=== PATIENT | male | born 1970 | race Two or more races ===

== ENCOUNTER 2020-01-28 04:37 | Day surgery (SDC) | payer OTHER ==
[2020-01-25 09:09] VITALS: BMI 28.7
[2020-01-28 13:08] VITALS: PULSE 66
[2020-01-28] MEDS ORDERED: MIDAZOLAM HCL 2 MG/2 ML SINGLE DOSE VIAL ONE ×2 (15:14)
[2020-01-28 16:03] VITALS: BP 128/88; TEMP 97.5
--- NOTE | 2020-01-28 16:04 | OP ---
Operative Note - Note: Operative Date: 01/28/20 Pre-Operative Diagnosis: Left renal stone Operation: Left ESWL Findings: 6 mm mid pole Left renal stone Post-Operative Diagnosis: Same as Pre-op Surgeon: Cristiano Alcantara Anesthesia: Regional Estimated Blood Loss (mls): 0 Operative Report Dictated: Yes
[2020-01-28] MEDS ORDERED: TAMSULOSIN HCL 0.4 MG CAP PO ONE ×2 (16:30→16:31)
[2020-01-28] MEDS ORDERED: ACETAMINOPHEN 325 MG TABLET (FP) PO ONE ×2 (16:30→17:15)
[2020-01-28] MEDS ORDERED: ACETAMINOPHEN 500 MG TABLET (FP) PO ONE (16:33)
[2020-01-28] MEDS ORDERED: ACETAMINOPHEN 325 MG TABLET (FP) ONE (16:38)
[2020-01-28] MEDS ORDERED: oxyCODONE HCL 5 MG TABLET PO ONE (17:15)
--- NOTE | 2020-01-28 19:23 | OP ---
DATE OF OPERATION: 01/28/2020 PREOPERATIVE DIAGNOSIS: Left renal stone . POSTOPERATIVE DIAGNOSIS: Left renal stone. PROCEDURE: Left extracorporeal shockwave lithotripsy. ATTENDING: Maryanne Alcantara M.D. ANESTHESIA: Fractional. DESCRIPTION OF PROCEDURE: Patient was brought in the operating room, placed in a supine position on the operating room table. Ultrasonography and fluoroscopy were performed. A 6-mm left mid pole stone was identified. Anesthesia and preoperative antibiotics were then administered. Shockwave lithotripsy was then started. 2500 impulses at 17 joules of power were administered to the stone under realtime ultrasonography and fluoroscopy. The stone fragmented well under realtime ultrasonography and fluoroscopy. No complications were noted. The patient tolerated the procedure very well. MARYANNE KLEIN M.D. [id number]
== END 2020-01-28 18:00 | disposition home or self-care (01) ==
LOC: JASU-SURG 04:37
PROVIDERS: ATTEND Urology
PROC: 0TF4XZZ Fragmentation in Left Kidney Pelvis, External Approach (ICD-10-PCS; principal; 2020-01-28 14:30)
DX: N20.0 Calculus of kidney (principal)

== ENCOUNTER 2020-06-16 04:25 | Day surgery (SDC) | payer OTHER ==
[2020-06-12 14:08] VITALS: BMI 28.4
[2020-06-16] MEDS ORDERED: KETOROLAC TROMETHAMINE 30 MG/1 ML VIAL ONE (09:56)
[2020-06-16] MEDS ORDERED: PROPOFOL 20 ML ONE (09:57)
[2020-06-16 10:56] VITALS: PULSE 57
[2020-06-16 12:13] VITALS: BP 120/78; TEMP 97.5
== END 2020-06-16 12:00 | disposition home or self-care (01) ==
LOC: JASU-SURG 04:25
PROVIDERS: ATTEND Urology
PROC: 0TF3XZZ Fragmentation in Right Kidney Pelvis, External Approach (ICD-10-PCS; principal; 2020-06-16 09:30)
DX: N20.0 Calculus of kidney (principal)

== ENCOUNTER 2021-08-20 15:03 | Emergency (ER) | payer OTHER ==
[2021-08-20 15:29] VITALS: BP 138/91; PULSE 74; TEMP 98; BMI 29.0
[2021-08-20] MEDS ORDERED: SODIUM CHLORIDE 0.9% 500 ML INFUS.BAG IV ONE (15:55)
[2021-08-20 16:48] LABS: BASO % 0.7 % (0-2.0); EOS % 2.4 % (0-4.5); HEMOGLOBIN 14.7 GM/dL (11.7-16.9); LYMPH % 32.2 % (8-40); MCHC 32.6 g/dl (32.0-35.9); MEAN CELL VOLUME 88.9 fl (80-96); MEAN PLT VOLUME 9.1 fl (7.5-11.1); MONO % 14.2 % (3.8-10.2); NEUT % 50.5 % (42.8-82.8); PLATELET COUNT 160 10^3/uL (134-434); RBC 5.06 M/mm3 (4.00-5.60); RDW 13.5 % (11.9-15.9); WHITE BLOOD COUNT 6.1 K/mm3 (4.0-10.0)
[2021-08-20 16:49] LABS: URINE APPEARANCE CLEAR; URINE BILIRUBIN NEGATIVE (NEGATIVE); URINE COLOR YELLOW; URINE GLUCOSE (UA) NEGATIVE (NEGATIVE); URINE KETONE NEGATIVE (NEGATIVE); URINE LEUK ESTERASE NEGATIVE (NEGATIVE); URINE NITRITE NEGATIVE (NEGATIVE); URINE PROTEIN NEGATIVE (NEGATIVE); URINE UROBILINOGEN 0.2 mg/dL (0.2-1.0)
[2021-08-20 16:55] LABS: INR 1.04 (0.83-1.09)
[2021-08-20 16:58] LABS: ACTIVATED PTT 31.7 SECONDS (25.2-36.5)
[2021-08-20 17:17] LABS: ALBUMIN 4.1 g/dl (3.4-5.0); CALCIUM 8.9 mg/dL (8.5-10.1)
[2021-08-20 17:18] LABS: BLOOD UREA NITROGEN 15.7 mg/dL (7-18)
[2021-08-20 17:20] LABS: CREATININE 0.8 mg/dL (0.55-1.3)
[2021-08-20 17:22] LABS: BILIRUBIN,TOTAL 0.5 mg/dL (0.2-1); TOT PROT 7.3 g/dl (6.4-8.2)
== END 2021-08-20 21:03 | disposition home or self-care (01) ==
LOC: JERFT 15:03
DX: R10.9 Unspecified abdominal pain (principal)
CPT/HCPCS: 36415; 74177-TC; 80053; 81003; 85025; 85610; 85730; 87086; 99285-25; Q9967

== ENCOUNTER 2022-12-27 04:29 | Day surgery (SDC) | payer OTHER ==
[2022-12-23 11:28] VITALS: BMI 29.3
[2022-12-27 11:02] VITALS: RESP 20
[2022-12-27] MEDS ORDERED: MIDAZOLAM HCL 2 MG/2 ML SINGLE DOSE VIAL ONE (12:58)
[2022-12-27] MEDS ORDERED: ONDANSETRON 4 MG/2 ML VIAL ONE (13:31)
[2022-12-27 16:36] VITALS: BP 123/78; PULSE 60; TEMP 97.3
== END 2022-12-27 16:00 | disposition home or self-care (01) ==
LOC: JASU-SURG 04:29
PROVIDERS: ATTEND Urology
PROC: 0TF4XZZ Fragmentation in Left Kidney Pelvis, External Approach (ICD-10-PCS; principal; 2022-12-27 12:30)
DX: N20.0 Calculus of kidney (principal)